=== PATIENT | male | born 1945 | race Caucasian/White ===

== ENCOUNTER 2023-11-22 11:45 | Emergency (ER) | payer OTHER, SELFPAY ==
[2023-11-22 11:47] VITALS: BP 148/71; PULSE 87; RESP 22; TEMP 36.2; O2SAT 94; BMI 23.9
--- NOTE | 2023-11-22 12:32 | RAD_ITS ---
STUDY: X-RAY - UNILATERAL RIBS ( RIGHT ) WITH CHEST REASON FOR EXAM: Male, 78 years old. Trauma TECHNIQUE - RIBS: 5 view(s) of the ribs. TECHNIQUE - CHEST: Single PA view of the chest. COMPARISON: None. FINDINGS - RIBS: There is evidence of displaced fractures of the right second third fourth fifth ribs. There is also evidence of a transverse fracture through the right scapular blade. FINDINGS - CHEST: Hyperinflation. Increased opacity in the peripheral lateral aspect of the right upper lobe. With the evidence of rib fractures, pulmonary contusion should be ruled out. There is no demonstrated pleural abnormality. Normal size heart. Normal mediastinum and ledy. Normal visualized pulmonary arteries. There is atherosclerotic tortuosity of the aortic arch and descending thoracic aorta. There are diffuse degenerative changes of the visualized thoracic spine. Normal visualized ribs, clavicles, and shoulders. There is no demonstrated abnormality of the visualized soft tissue structures of the upper abdomen. RAD/Ribs Uni Min 3V w/PA Chest IMPRESSION: RIBS: Displaced fractures of the right second, third, fourth and fifth ribs. Transverse fracture through the right scapular blade. Increased opacity in the peripheral lateral aspect of the right upper lobe as described. Pulmonary contusion should be ruled out. CHEST: Normal x-ray examination of the chest. Electronically Signed: Gio Gale MD at 13:25 EDT ,
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
--- NOTE | 2023-11-22 12:59 | RAD_ITS ---
STUDY: X-RAY - RIGHT SHOULDER REASON FOR EXAM: Male, 78 years old. Injury/Pain TECHNIQUE: 2 view(s) of the shoulder. COMPARISON: None. FINDINGS: Normal glenohumeral articulation. There is degenerative arthrosis of the acromioclavicular joint without inferior osseous spur formation. Normal acromion. Normal humeral head and visualized proximal humerus. Displaced fractures of the right second third fourth and fifth ribs as well as a transverse fracture through the body of the scapula.. Increased markings in the peripheral lateral aspect of the right upper lobe. RAD/Shoulder min 2 Views IMPRESSION: Degenerative changes of the acromion clavicular joint. Right upper rib fractures as well as a fracture through the body of the scapula. Electronically Signed: Gio Gale MD at 13:26 EDT ,
[2023-11-22 13:37] VITALS: BP 144/72; PULSE 89; RESP 17; O2SAT 97
[2023-11-22 13:52] LABS: Hematocrit 32.3 % (40-54); Hemoglobin 10.5 g/dL (13.0-16.5); Mean Corp Hgb Conc 32.5 g/dL (32-36); Mean Corpuscular Hgb 32.9 pg (27.0-32.0); Mean Corpuscular Volume 101.3 fL (80-94); Mean Platelet Vol. 11.9 fl (6.2-12.0); POSITIVE COUNT YES; POSITIVE MORPHOLOGY YES; Platelet Count 260 K/mm3 (150-450); RBC Distribution Width SD 89.3 fl (35.1-43.9); Red Blood Count 3.19 M/mm3 (4.6-6.2); White Blood Count 20.7 K/mm3 (4.4-11.0)
[2023-11-22 13:53] LABS: Differential Indicated MANUAL DIFF
[2023-11-22] MEDS: Morphine 4 MG/ML Syringe IV (13:53)
[2023-11-22 14:13] LABS: Anion Gap 4 (5-15); BUN 25 mg/dL (7-18); BUN/Creat Ratio 20.8 RATIO (10-20); Calcium,Total 8.3 mg/dL (8.5-10.1); Chloride 110 mmol/L (98-107); EST Glomerular Filtration Rate 63 mL/min (>60); Est Glom Filt Rate - Afr Amer 76 mL/min (>60); Estimated Creatinine Clearance 43.85 ml/min; Glucose 114 mg/dL (74-106); Potassium 4.2 mmol/L (3.5-5.1); Sodium Level 141 mmol/L (136-145)
[2023-11-22 14:26] VITALS: BP 156/68; PULSE 86; RESP 18; TEMP 36.2; O2SAT 93
[2023-11-22 14:43] LABS: Anisocytosis 1+; Basophil 1 % (0-1); Lymphocyte 10 % (19-41); Metamyelocyte 1 % (0-1); Monocyte 6 % (0-10); Myelocyte 1 % (0-0); Neutrophil-Band 1 % (0-5); Neutrophil-Segmented 80 % (47-70); Total Cells Counted 100 (MANUAL DIFF)
[2023-11-22 14:44] LABS: Absolute Neutrophil Count 16.8 X10^3/uL (2.0-7.7); Platelet Estimate ADEQUATE (ADEQ); Red Cell Morphology N CHROM NORMAL (NORM C&C)
--- NOTE | 2023-11-22 14:47 | ED.RN ---
called report to [facility]. made aware that CT scans not done, xrays only.
[2023-11-26 13:55] LABS: Pathologist Review Reviewed
== END 2023-11-22 14:48 | disposition short-term general hospital (02) ==
PROVIDERS: Emergency Provider Emergency Medicine; PCP Family Medicine; Visit Provider Emergency Medicine
DX: S22.41XA Multiple fractures of ribs, right side, initial encounter for closed fracture (principal); M25.511 Pain in right shoulder; S42.111A Displaced fracture of body of scapula, right shoulder, initial encounter for closed fracture; F17.200 Nicotine dependence, unspecified, uncomplicated; V46.5XXA Car driver injured in collision with other nonmotor vehicle in traffic accident, initial encounter; Z79.82 Long term (current) use of aspirin; R07.9 Chest pain, unspecified
CPT/HCPCS: 71101; 73030; 80048; 85025; 96374; 99284; A4216

== ENCOUNTER → 2024-12-28 | Outpatient (CLI) | payer SELFPAY ==
--- NOTE | 2024-12-28 14:25 | CT_ITS ---
PROCEDURE: CHEST WITH CONTRAST 12/28/2024 REASON FOR EXAM: 8X6MM R MIDDLE LOBE NODULE TECHNIQUE: Prone and supine chest CT with intravenous contrast, high resolution CT (HRCT) protocol. Coronal and Sagittal reconstruction series were provided. CONTRAST: Isovue-300 VOLUME: 100 mL One or more dose reduction techniques were used (e.g., Automated exposure control, adjustment of the mA and/or kV according to patient size, use of iterative reconstruction technique). RADIATION DOSE SUMMARY: CTDlvol: 13.3 mGy DLP: 254.53 mGycm COMPARISON: Comparison is made with prior outside examination dated November 22, 2023. FINDINGS: Hardware: None Lymph nodes: Small mediastinal lymph nodes. Heart and Vasculature: Normal heart size. No pericardial effusion. Coronary artery calcification. Lungs and Airways: There is a 3.4 cm by 1.1 cm pleural-based density in the superior medial aspect of the superior segment of the right lower lobe. There is evidence overlying healed rib fractures. Increased linear scarring at the right lung base. There are 2 adjacent pulmonary nodules in the left lower lobe. The larger nodule measuring 5.8 mm. There is a 2.3 cm 2 cm pleural-based nodular density in the left lower lobe as well as a 1.3 cm nodular density in the posterior medial segment of the right lower lobe. Correlation with a PET scan recommended. Pleura: Unremarkable. Upper Abdomen: Hyperplasia of the left adrenal gland. Small cyst in the upper pole of the left kidney. Bones: Degenerative changes of the thoracic spine. CT/Chest WITH Contrast IMPRESSION: Coronary artery calcification (CAC) is is present Bilateral pulmonary nodules as described. Correlation with a PET scan recommen ded. Reading Location: [place] [id number]
[2024-12-28 14:38] LABS: Hematocrit 30.3 % (40-54); Mean Corpuscular Hgb 31.9 pg (27.0-32.0); Mean Corpuscular Volume 96.8 fL (80-94); Mean Platelet Vol. 11.4 fl (6.2-12.0); POSITIVE MORPHOLOGY YES; Platelet Count 276 K/mm3 (150-450); RBC Distribution Width CV 22.7 % (11.6-14.6); RBC Distribution Width SD 80.6 fl (35.1-43.9); Red Blood Count 3.13 M/mm3 (4.6-6.2); White Blood Count 4.6 K/mm3 (4.4-11.0)
[2024-12-28 14:44] LABS: Scan Indicated on CBC? Y/N YES- FLAGS NOTED
[2024-12-28 15:19] LABS: Differential Comment SCANNED
[2024-12-28 15:42] LABS: Anion Gap 10 (5-15); BUN 21 mg/dL (4-19); BUN/Creat Ratio 16.5 RATIO (10-20); Calcium,Total 9.1 mg/dL (7.6-11.0); Carbon Dioxide 24.2 mmol/L (21.0-32.0); Chloride 105 mmol/L (98-108); Creatinine, Serum 1.28 mg/dL (0.70-1.20); EST Glomerular Filtration Rate 58 (>60); Glucose 123 mg/dL (70-99); Potassium 4.2 mmol/L (3.3-5.1); Sodium Level 139 mmol/L (133-145)
== END | disposition home or self-care (01) ==
PROVIDERS: PCP Family Medicine; Referring Provider Family Medicine; Visit Provider Family Medicine
DX: R91.1 Solitary pulmonary nodule (principal); R06.02 Shortness of breath
CPT/HCPCS: 36415; 71260; 80048; 85027; Q9967; A4216